=== PATIENT | male | born 1955 | race Caucasian/White ===

== ENCOUNTER 2016-10-14 16:21 | Inpatient (IN) ==
--- NOTE | 2016-10-14 17:09 | Emergency Department Report ---
Chest Pain HPI - General Chief Complaint: Chest Pain Stated Complaint: Chest & arm pain Time Seen by Provider: 10/14/16 16:56 - History of Present Illness HPI narrative: 60-year-old gentleman presents with chest pain. Onset has been intermittent over the last month, exacerbated by activity. He finds that if he becomes active has to sit and rest for couple of minutes and then the chest pain would resolve. He has not been to see his primary doc since this started. He was at work today sitting at his desk when he had sudden onset of chest pain which is more intense. He went back home, took a shower and tried to relax, but the discomfort continued. It seemed to settle down into his stomach. Initially having radiated to both arms. He spoke with his about it and she insisted he come to the emergency department. At this time he has no chest pain, does feel slightly short of breath and still has some nausea. - Related Data Allergies Allergy/AdvReac Type Severity Reaction Status Date / Time aspirin Allergy Intermediate Swelling Verified 10/14/16 16:59 ibuprofen Allergy Verified 10/14/16 16:59 Review of Systems All systems: reviewed and negative except as stated PFSH Hypertension, diabetes mellitus Physical Exam - Limitations Limitations: no limitations - General General appearance: alert, in no apparent distress - Normal Exams: Head:: Normocephalic without trauma Chest/Respirations:: Clear all adam, with good airflow, and symmetry bilaterally Cardiovascular:: Regular rate and rhythm, without murmur or gallop, Pulses 2+ all extremities, capillary refill, <2 seconds all extremities Abdomen:: Bowel sounds positive, soft, non-tender, non-distended, no hepatosplenomegaly, masses or bruits noted Neurological:: Patient is alert, and oriented, cranial nerves, motor/sensory/ cerebellar, exams w/o gross deficits, to observation Psychiatric:: Patient exhibits, appropriate attention, emotion and affect Chest Pain - [facility] Narrative Medical decision making narrative: EKG shows ST depressions in multiple leads. IV was started, cardiology was contacted. Dr. Sanchez was present in the ED within approximately 5 minutes of our initial evaluation of the patient. IV was started, and patient was taken directly back to [employer] [facility] before labs were returned and meds were given. [employer] staff will assume care of the patient and are going to follow labs and medication. Patient's blood pressure was 189/124, pulse 96, SaO2 97% on room air. He does have a history of high blood pressure and typically rises dramatically when he is evaluated in an office. - Differential Diagnosis Likely: unstable angina pectoris Disposition Clinical Impression: Unstable angina pectoris Disposition: 02 To [facility] Condition: Stable Time of Disposition: 17:10 - Seen By: physician
[2016-10-14 17:12] VITALS: RESP 18; TEMP 98.2
[2016-10-14] MEDS ORDERED: LIDOCAINE 1% (10mg/ml) 30ml SDV INJ ONE (17:12)
[2016-10-14] MEDS ORDERED: HEPARIN 1,000 UNITS/500 ML PREMIX (*CVL ONLY*) IV ONE (17:12)
[2016-10-14] MEDS ORDERED: FentaNYL 100 MCG/2 ML INJECTION ONE (17:18)
[2016-10-14] MEDS ORDERED: MIDAZOLAM 2mg/2ml INJECTION ONE (17:18)
[2016-10-14] MEDS ORDERED: NITROGLYCERIN 50MG INJECTION IV ONE (17:19)
[2016-10-14] MEDS ORDERED: Verapamil 5 MG/2 ML VIAL ONE (17:19)
[2016-10-14] MEDS ORDERED: MORPHINE SULFATE 2 MG SYRINGE IVP PRN (17:20)
[2016-10-14] MEDS ORDERED: LISINOPRIL 2.5 MG TABLET PO ONE (17:20)
[2016-10-14 17:21] VITALS: BP 183/126; PULSE 96; O2SAT 95
[2016-10-14] MEDS ORDERED: NS 1,000 ML ONE ×2 (17:21→17:22)
[2016-10-14] MEDS ORDERED: NITROGLYCERIN 0.4 MG SUBLINGUAL TABLET ONE (17:22)
[2016-10-14] MEDS ORDERED: NS 1,000 ML IV SCH (17:30)
[2016-10-14] MEDS ORDERED: NITROGLYCERIN 2% OINTMENT 1gm PACKET ONE (17:56)
[2016-10-14] MEDS ORDERED: Bisacodyl EC TAB 5 MG TABLET PO PRN ×2 (18:21)
[2016-10-14] MEDS ORDERED: METOCLOPRAMIDE 10mg/2ml INJECTION IVP PRN ×2 (18:21)
[2016-10-14] MEDS ORDERED: ATROPINE 1 MG/ML INJECTION IVP PRN ×2 (18:21)
[2016-10-14] MEDS ORDERED: PROMETHAZINE 25 MG INJECTION IVP PRN ×2 (18:21)
[2016-10-14] MEDS ORDERED: SALINE FLUSH 10ml SYRINGE IV ONE (18:21)
[2016-10-14] MEDS ORDERED: LORazepam 0.5 MG TABLET PO PRN ×2 (18:21)
[2016-10-14] MEDS ORDERED: NITROGLYCERIN 0.4 MG SUBLINGUAL TABLET SL PRN ×2 (18:21)
[2016-10-14] MEDS ORDERED: ONDANSETRON 4 MG/2 ML INJECTION IVP PRN ×2 (18:21)
[2016-10-14] MEDS ORDERED: ACETAMINOPHEN 325 MG TABLET PO PRN (18:21)
[2016-10-14] MEDS ORDERED: MAG-AL + SIM ORAL LIQUID 30ml PO PRN ×2 (18:21)
--- NOTE | 2016-10-14 18:30 | Discharge Instructions ---
Discharge Plan - Med Rec/Dispo Referrals/Follow Up: Darvin Aguirre MD [Primary Care Provider] - Hunter Casarez DO [Family Provider] - Prescriptions: No Action Allopurinol [Zyloprim] 1 tab PO DAILY Amlodipine [Norvasc] 10 mg PO DAILY Fluticasone Nasal [place] [Flonase] 2 spray MARILYN DAILY Atorvastatin [Lipitor] 40 mg PO HS Liraglutide [Victoza] 0.6 mg SQ DAILY Phenytoin Cap [Dilantin] 100 mg PO DAILY Lisinopril [Prinivil] 20 mg PO DAILY Atenolol [Tenormin] 50 mg PO BID HydroCHLOROthiazide [Hydrodiuril] 25 mg PO DAILY - Disposition 02 To [facility] Acute Care
[2016-10-14] MEDS ORDERED: CARVEDILOL 3.125 MG TABLET PO SCH (21:00)
[2016-10-14] MEDS ORDERED: ATENOLOL 50 MG TABLET PO SCH (21:00)
[2016-10-14] MEDS ORDERED: ATORVASTATIN 40 MG TABLET PO SCH ×2 (22:00)
[2016-10-14] MEDS ORDERED: HEPARIN DRIP 20,000 UNIT/500 ML BAG IV ONE (23:00)
[2016-10-15] MEDS ORDERED: PHENYTOIN 100 MG CAPSULE PO SCH (09:00)
[2016-10-15] MEDS ORDERED: ALLOPURINOL 300 MG TABLET PO SCH (09:00)
[2016-10-15] MEDS ORDERED: FLUTICASONE NASAL SPRAY 50mcg EA NOSTRIL SCH (09:00)
[2016-10-15] MEDS ORDERED: AMLODIPINE 10 MG TABLET PO SCH (09:00)
[2016-10-15] MEDS ORDERED: LIRAGLUTIDE INJECTABLE PEN SQ SCH (09:00)
[2016-10-15] MEDS ORDERED: LISINOPRIL 20 MG TABLET PO SCH (09:00)
--- NOTE | 2016-10-15 13:44 | Cardiac Catheterization Report ---
DATE OF PROCEDURE October 14, 2016 The patient is a 60-year-old gentleman who presented to emergency room with chest pressure and tightness and abnormal EKG suggestive of diffuse ischemia and was referred for further evaluation by cardiac catheterization and possible intervention. Informed consent was obtained after explaining the procedure and the potential risks to the patient who agreed to proceed with the procedure. PROCEDURE 1. Left heart catheterization. 2. Coronary angiography. 3. Left ventriculography. 4. Intra-aortic balloon pump insertion. TECHNIQUE He was prepped and draped in the usual sterile techniques. Conscious sedation was performed using Versed and fentanyl. 1% lidocaine was used for local anesthesia. Using modified Seldinger technique, arterial access was obtained into the right radial artery with placement of a 6-[place] arterial sheath. 6000 units of heparin, 300 mcg of nitroglycerin, and 2.5 mg of verapamil were given through the arterial sheath. LEFT VENTRICULOGRAPHY Left ventriculography in single-plane KRISH[place]URTHY shallow projection showed anteroapical akinesia with ejection fraction of about 30% with no mitral regurgitation or gradient across the aortic valve. LVEDP was elevated at about 30. CORONARY ANGIOGRAPHY Left main had proximal 80% and distal 80% stenosis. Left anterior descending artery had subtotal occlusion at the ostium just off of the left main. Proximal LAD also had about 80% stenosis. Left circumflex artery had stenosis of up to about 30% with no hemodynamically significant lesions. Right coronary artery was large and dominant with no significant lesions. After reviewing the images we decided to proceed with intra-aortic balloon pump insertion. 1% lidocaine was used for local anesthesia. Using modified Seldinger technique, arterial access was obtained into the right femoral artery with placement of an 8-[place] arterial sheath. Next, a 40 ml intra-aortic balloon pump was advanced over the wire into the descending thoracic aorta and was placed just distal to the origin of the left subclavian artery. Intra- aortic balloon pump was inflated without difficulty. The patient tolerated the procedure well with no complications. IMPRESSION 1. Severe coronary artery disease involving left main. 2. Wall motion abnormalities as described above with ejection fraction of about 30%. 3. Successful intra-aortic balloon pump insertion. Will transfer and consult surgery for possible coronary artery bypass graft. BRAVO
== END 2016-10-14 18:22 | disposition short-term general hospital (02) | DRG 271 ==
LOC: ED 16:21 → CCU 17:21
PROVIDERS: ADMIT Internal Medicine Cardiovascular Disease; ATTEND Internal Medicine Cardiovascular Disease

== ENCOUNTER 2016-10-24 20:33 | Observation (INO) ==
--- NOTE | 2016-10-24 21:32 | Emergency Department Report ---
General Adult HPI - General Chief complaint: Medical Emergency Stated complaint: numbness lt side of chest-uncomfortable Time Seen by Provider: 10/24/16 20:57 Source: patient, family Mode of arrival: ambulatory Limitations: no limitations - History of Present Illness HPI narrative: 60-year-old male presents to the emergency department with a chief complaint of feeling a numbness sensation across his anterior chest. Patient noted onset of symptoms approximately 1 hour prior to arrival to the emergency department today. He denies any true pain or discomfort. No radiation of symptoms. Symptoms have been persistent in nature since onset. Patient was at home when his symptoms began. Patient does not note any exacerbating or remitting factors. Patient has no other complaints or associated symptoms present. Patient did undergo CABG after having an ID on October 14, 2016. Patient did take 75 mg of Plavix by mouth 1 today prior to arrival to the emergency department. - Related Data Home Medications Medication Instructions Recorded Confirmed Atorvastatin [Lipitor] 40 mg PO HS 10/14/16 10/24/16 Fluticasone Nasal [place] [Flonase] 2 spray MARILYN DAILY 10/14/16 10/24/16 Phenytoin Cap [Dilantin] 100 mg PO DAILY 10/14/16 10/24/16 Acetaminophen 650 mg PO TID 10/24/16 10/24/16 Amlodipine Besylate [Norvasc] 5 mg PO DAILY 10/24/16 10/24/16 Carvedilol [Coreg] 12.5 mg PO BIDWM 10/24/16 10/24/16 Clopidogrel [Plavix] 75 mg PO DAILY 10/24/16 10/24/16 DiphenhydrAMINE [Benadryl] 25 mg PO Q4H PRN 10/24/16 10/24/16 Docusate Sodium [Colace] 100 mg PO BID 10/24/16 10/24/16 Famotidine [Pepcid] 20 mg PO BID 10/24/16 10/24/16 Furosemide [Lasix] 20 mg PO BID 10/24/16 10/24/16 Insulin Detemir [Levemir] 20 unit SQ HS 10/24/16 10/24/16 Lisinopril [Prinivil] 5 mg PO DAILY 10/24/16 10/24/16 Metformin [Glucophage] 1,000 mg PO BIDWM 10/24/16 10/24/16 Nitroglycerin 0.4 mg SL Q5M PRN 10/24/16 10/24/16 Potassium Chloride 20 meq PO DAILY 10/24/16 10/24/16 Allergies Allergy/AdvReac Type Severity Reaction Status Date / Time aspirin Allergy Intermediate Swelling Verified 10/24/16 21:15 ibuprofen Allergy Verified 10/24/16 21:15 liraglutide [From Victoza] AdvReac Nausea Verified 10/24/16 21:16 Review of Systems Constitutional: Denies: fever, chills Eyes: Denies: eye pain, eye discharge ENT: Denies: ear pain, throat pain Cardiovascular: Denies: chest pain, palpitations Respiratory: Denies: cough, dyspnea Gastrointestinal: Denies: abdominal pain, nausea, vomiting, diarrhea Genitourinary: Denies: urgency, dysuria, genital lesions Musculoskeletal: Denies: back pain Integumentary: Denies: erythema, rash Neurological: Denies: headache, weakness, numbness Psychiatric: Denies: anxiety, depression Endocrine: Denies: fatigue, heat or cold intolerance Hematological/Lymphatic: Denies: easy bleeding, easy bruising Allergic/Immunologic: Denies: facial swelling, urticaria PFSH Patient Stated Medical History Hypertension Yes Diabetes Mellitus Type 2 Yes ID, CAD Surgical History: CABG Family History: Reviewed and noncontributory. - Social History Smoking status: Never smoker Substance use type: does not use Alcohol intake frequency: does not drink Physical Exam - Limitations Limitations: no limitations - General General appearance: alert, in no apparent distress - Normal Exams: Head:: Normocephalic without trauma Eyes:: Pupils are PERRLA w/ EOMI, No scleral icterus, irritation, or foreign bodies noted ENMT:: No facial trauma, nasal exudates, pharyngeal erythema, or exudates are noted Dental: No fractured, loose, or missing teeth noted Neck:: Full range of motion, without adenopathy, JVD, bruits or thyromegaly Chest/Respirations:: Clear all adam, with good airflow, and symmetry bilaterally Cardiovascular:: Regular rate and rhythm, without murmur or gallop, Pulses 2+ all extremities, capillary refill, <2 seconds all extremities Abdomen:: Bowel sounds positive, soft, non-tender, non-distended, no hepatosplenomegaly, masses or bruits noted Lymphatic:: No lymphadenopathy, or lymphedema noted Musculoskeletal:: No tenderness, or deformity noted, good range of motion, all extremities Integumentary:: No rashes, hives, or bruising noted, hair and nails, without abnormality (Surgical incision is clean dry and intact without sign of infection.) Neurological:: Patient is alert, and oriented, cranial nerves, motor/sensory/ cerebellar, exams w/o gross deficits, to observation Psychiatric:: Patient exhibits, appropriate attention, emotion and affect Course Vital Signs Temperature 98.1 F 10/24/16 20:40 Pulse Rate 79 10/24/16 20:40 Respiratory Rate 17 10/24/16 20:40 Blood Pressure 146/89 H 10/24/16 20:40 Pulse Oximetry 95 10/24/16 20:40 Temperature 98.1 F 10/24/16 20:40 Pulse Rate 79 10/24/16 21:45 Respiratory Rate 23 10/24/16 21:45 Blood Pressure 132/93 H 10/24/16 21:45 Pulse Oximetry 96 10/24/16 21:45 Medical Decision Making - [facility] Narrative Medical decision making narrative: Labs / imaging were discussed in detail with the patient and family and questions are answered. Patient has taken 75 mg of Plavix by mouth 1 today prior to arrival to the emergency department. Patient has an aspirin ALLERGY. Patient declines offered analgesic pain medication in the emergency department stating he is not having true pain or discomfort. Patient is discussed with his special agent Dr. Sanchez who is in agreement with the current plan of management and recommends admitting the patient in observation status to his service for further evaluation and treatment. Patient is admitted to the hospital in improved condition. Patient and family are in agreement with the current plan of management. No further orders. - Differential Diagnosis ID, Chest wall pain, ACS, metabolic discomfort. - Lab Data Result diagrams: 10/24/16 21:13 10/24/16 21:13 Lab Results 10/24/16 10/24/16 Range/Units 21:13 21:13 WBC 11.6 H (4.5-11.0) T/MM3 RBC 4.15 L (4.50-5.90) M/MM3 Hgb 12.4 L (13.5-17.5) GM/DL Hct 36.1 L (41-53) % MCV 87.0 (80-100) UM3 MCH 29.9 (26-34) UUG MCHC 34.3 (31-37) GM/DL RDW Std Deviation 41.0 (36.9-50.2) FL Plt Count 394 D (130-400) T/MM3 MPV 9.4 (9.4-12.4) UM3 Immature Gran % (Auto) 1.0 H (0.0-0.5) % Neut % (Auto) 60.0 (33-66) % Lymph % (Auto) 26.1 (23-45) % [place] % (Auto) 9.2 H (0-9.0) % Eos % (Auto) 3.4 (0-4) % Baso % (Auto) 0.3 (0-2) % Neut # 6.9 (1.8-7.7) T/MM3 Lymph # 3.0 (1-4.8) T/MM3 [place] # 1.1 H (0-0.8) T/MM3 Eos # 0.4 (0-0.5) T/MM3 Baso # 0.0 (0-0.2) T/MM3 Abs Immat Gran (auto) 0.12 H (0.00-0.03) T/MM3 Turbidity < 20 (0-20) Sodium 141 (134-144) MEQ/L Potassium 3.4 L (3.6-5) MEQ/L Chloride 107 (98-107) MEQ/L Carbon Dioxide 23 (22-30) MEQ/L Anion Gap 11 (5-15) MEQ/L BUN 13.0 (9-20) MG/DL Creatinine 0.8 (0.8-1.5) MG/DL GFR Calculation 99 BUN/Creatinine Ratio 16 (6-26) RATIO Glucose 147 H (75-110) MG/DL Calculated Osmolality 274 (261-280) MOSM/KG Calcium 9.0 (8.4-10.2) MG/DL Total Bilirubin 0.50 (0.20-1.30) MG/DL Icterus Index < 2 (0-7) AST 27 (17-59) U/L ALT 42 (21-72) U/L Alkaline Phosphatase 91 (38-126) U/L Troponin I 0.643 H (0-0.12) ng/ml Total Protein 6.2 L (6.3-8.2) G/DL Albumin 3.8 (3.5-5.0) G/DL Globulin 2.4 (2.4-3.6) G/DL Albumin/Globulin Ratio 1.6 (1.1-2.2) RATIO Specimen Hemolysis < 15 (0-25) - Radiology Data CXR - No acute processes. - EKG Data EKG #1 EKG results narrative: Sinus rhythm. 79 bpm. No STEMI. No reciprocal changes. No active chest pain. Reviewed with Dr. Sanchez of cardiology who is in agreement with the interpretation. Critical Care Time Critical Care Time: Yes Total Critical Care Time: 47 Attestation: 47 minutes of critical care time was assessed to the patient due to the positive troponin. Patient required complex medical decision-making, repeated assessment at the bedside, and had potential for decompensation. Patient was admitted to the hospital for further evaluation and treatment. Disposition Clinical Impression: chest pain Disposition: 02 To [facility] Condition: Stable Time of Disposition: 21:33 (Admit. Dr. Sanchez. ) - Seen By: physician
[2016-10-24] MEDS ORDERED: SALINE FLUSH 10ml SYRINGE IVF PRN (22:22)
[2016-10-24 22:48] VITALS: BMI 25.9
[2016-10-24 23:06] VITALS: TEMP 97.6
[2016-10-25] MEDS ORDERED: DiphenhydrAMINE 25 MG CAPSULE PO PRN (06:25)
[2016-10-25] MEDS ORDERED: NITROGLYCERIN 0.4 MG SUBLINGUAL TABLET SL PRN (06:25)
[2016-10-25 07:18] VITALS: BP 149/95; RESP 16; O2SAT 96
[2016-10-25] MEDS ORDERED: CARVEDILOL 12.5 MG TABLET PO SCH (08:00)
[2016-10-25] MEDS ORDERED: METFORMIN 1,000 MG TABLET PO SCH (08:00)
[2016-10-25] MEDS ORDERED: --POM--LISINOPRIL 5 MG TABLET PO SCH (09:00)
[2016-10-25] MEDS ORDERED: PHENYTOIN 100 MG PO SCH (09:00)
[2016-10-25] MEDS ORDERED: FAMOTIDINE 20 MG TABLET PO SCH (09:00)
[2016-10-25] MEDS ORDERED: ACETAMINOPHEN 325 MG TABLET PO SCH (09:00)
[2016-10-25] MEDS ORDERED: --POM--CLOPIDOGREL 75 MG TABLET PO SCH (09:00)
[2016-10-25] MEDS ORDERED: --POM--METFORMIN 500 MG TABLET PO SCH (09:00)
[2016-10-25] MEDS ORDERED: PHENYTOIN 100 MG CAPSULE PO SCH (09:00)
[2016-10-25] MEDS ORDERED: FLUTICASONE NASAL SPRAY 50mcg EA NOSTRIL SCH (09:00)
[2016-10-25] MEDS ORDERED: --POM--FAMOTIDINE 20 MG TABLET PO SCH (09:00)
[2016-10-25] MEDS ORDERED: FUROSEMIDE 20 MG TABLET PO SCH (09:00)
[2016-10-25] MEDS ORDERED: CLOPIDOGREL 75 MG TABLET PO SCH (09:00)
[2016-10-25] MEDS ORDERED: LISINOPRIL 5 MG TABLET PO SCH (09:00)
[2016-10-25] MEDS ORDERED: AMLODIPINE 5 MG TABLET PO SCH (09:00)
[2016-10-25] MEDS ORDERED: NITROGLYCERIN 0.4 MG SL PRN (09:00)
[2016-10-25] MEDS ORDERED: --POM--FUROSEMIDE 20 MG TABLET PO SCH (09:00)
[2016-10-25] MEDS ORDERED: DOCUSATE SODIUM 100 MG CAPSULE PO SCH (09:00)
[2016-10-25] MEDS ORDERED: --POM--AMLODIPINE 5 MG TABLET PO SCH (09:00)
--- NOTE | 2016-10-25 09:23 | XRay Report ---
EXAM: XR chest 1V COMPARISON: None available. HISTORY: Pain . Numbness on left side of chest. FINDINGS:Sternotomy wires are in place. EKG leads project over the chest. The heart is enlarged. The pulmonary vascularity appears unremarkable. Linear opacities are seen at the left lung base which may represent atelectasis or scarring. The lungs are otherwise clear. There is no evidence for pleural effusion. There is no evidence for a pneumothorax. No osseous abnormalities are identified. IMPRESSION: 1. Cardiac megaly. 2. Left basilar atelectatic changes or scarring. LOCATION OF DICTATION: [facility] .
[2016-10-25 09:25] VITALS: PULSE 85
--- NOTE | 2016-10-25 11:10 | Cardiology History & Physical ---
History of Present Illness Chief complaint: Chest wall numbness HPI: Abiel is a 60 year old male who is known to Dr. Sanchez with a history of CA, CAD with CABG X2 on 10/15/16, HTN, HLD, DM. He presented to the ED last evening with a chief complaint of feeling a numbness sensation across his anterior chest. He noted onset of symptoms approximately 1 hour prior to arrival. He denied any true pain or discomfort. No radiation of symptoms. Symptoms have been persistent in nature since onset. He did not note any exacerbating or remitting factors. He is examined in his room on the surgical unit. He describes numbness on both sides of chest from mid-clavicular line to mid-clavicular line at the 3-4 intercostal spaces. He denies pressure, tightness or pain. He denies dyspnea, recent illness, fever, chills, sore throat, productive cough, N/V/D, dysuria. Review of Systems - Constitutional Constitutional: Absent: chills, fever(s) - EENMT Eyes: Absent: change in vision Balance: Absent: vertigo Mouth/Throat: Absent: sore throat - Cardiovascular Cardiovascular: Present: other (chest wall numbness). Absent: chest pain, palpitations, syncope, dyspnea on exertion, orthopnea Vascular: Absent: pedal edema - Respiratory Respiratory: Absent: cough, dyspnea - Gastrointestinal Gastrointestinal: Absent: diarrhea, nausea, vomiting - Genitourinary Genitourinary: Absent: dysuria - Integumentary/Breasts Integumentary: Present: other (midline sternal incision, healing well). Absent : erythema, rash - Neurological Neurological: Absent: dizziness PFSH Patient Stated Medical History Hypertension Yes Diabetes Mellitus Type 2 Yes Gout Yes Nephrolithiasis Yes Surgical History: CABG x2: GUEVARA to the LAD, Vein graft to Circumflex. Left leg vein harvest. Tonsillectomy. Vasectomy Family History: Father- alive, age 81 with PPM Mother- in her 70s, had Lupus - Social History Smoking status: Never smoker Substance use type: does not use Alcohol intake frequency: does not drink Housing: house Household members: spouse Current occupational status: employed Current occupation: computer game programmer Current occupational exposures/hazards: No Does patient use chewing tobacco?: No Current residence: Apartment/Private Home Medications Home Medications Medication Instructions Recorded Confirmed Type Atorvastatin [Lipitor] 40 mg PO HS 10/14/16 10/24/16 History Fluticasone Nasal [place] [Flonase] 2 spray MARILYN DAILY 10/14/16 10/24/16 History Phenytoin Cap [Dilantin] 100 mg PO DAILY 10/14/16 10/24/16 History Acetaminophen 650 mg PO TID 10/24/16 10/24/16 History Amlodipine Besylate [Norvasc] 5 mg PO DAILY 10/24/16 10/24/16 History Carvedilol [Coreg] 12.5 mg PO BIDWM 10/24/16 10/24/16 History Clopidogrel [Plavix] 75 mg PO DAILY 10/24/16 10/24/16 History DiphenhydrAMINE [Benadryl] 25 mg PO Q4H PRN 10/24/16 10/24/16 History Docusate Sodium [Colace] 100 mg PO BID 10/24/16 10/24/16 History Famotidine [Pepcid] 20 mg PO BID 10/24/16 10/24/16 History Furosemide [Lasix] 20 mg PO BID 10/24/16 10/24/16 History Insulin Detemir [Levemir] 20 unit SQ HS 10/24/16 10/24/16 History Lisinopril [Prinivil] 5 mg PO DAILY 10/24/16 10/24/16 History Metformin [Glucophage] 1,000 mg PO BIDWM 10/24/16 10/24/16 History Nitroglycerin 0.4 mg SL Q5M PRN 10/24/16 10/24/16 History Potassium Chloride 20 meq PO DAILY 10/24/16 10/24/16 History Allergies Allergy/AdvReac Type Severity Reaction Status Date / Time aspirin Allergy Intermediate Swelling Verified 10/24/16 21:15 ibuprofen Allergy Verified 10/24/16 21:15 liraglutide [From Victoza] AdvReac Nausea Verified 10/24/16 21:16 Exam Vital signs: Temperature 97.6 F 10/25/16 07:00 Pulse Rate 85 10/25/16 08:00 Respiratory Rate 16 10/25/16 07:00 Blood Pressure 149/95 H 10/25/16 07:00 Pulse Oximetry 96 10/25/16 07:00 Oxygen Delivery Method Room Air - Constitutional no acute distress, thin, cooperative - Routine HEENT Exam Head: Present: normocephalic ENT: Present: mucous membranes moist - Routine Neck Exam Absent: JVD, carotid bruit - Routine Chest/Breast/Axilla Exam Chest wall: Present: tenderness - Routine Respiratory Exam Present: CTA bilaterally. Absent: dyspnea, decreased breath sounds, rales, crackles - Routine Cardiovascular Exam Present: RRR, no murmur. Absent: JVD - Routine Abdominal Exam Present: soft, normoactive bowel sounds - Routine Extremities Exam Present: no edema - Routine Skin Exam Present: intact, dry, warm - Detailed Skin Exam chest Comments: well healing surgical incision - Routine Neurological Exam Present: alert, oriented X3 - Routine Psychiatric Exam Present: normal affect, normal thought process Results 10/24/16 21:13 10/25/16 06:10 Cardiac Enzymes 10/25/16 10/25/16 Range/Units 00:58 06:10 Troponin I 0.587 H 0.461 H (0-0.12) ng/ml Comprehensive Metabolic Panel 10/25/16 Range/Units 06:10 Sodium 141 (134-144) MEQ/L Potassium 3.5 L (3.6-5) MEQ/L Chloride 106 (98-107) MEQ/L Carbon Dioxide 26 (22-30) MEQ/L BUN 12.0 (9-20) MG/DL Creatinine 0.8 (0.8-1.5) MG/DL Glucose 138 H (75-110) MG/DL Calcium 8.7 (8.4-10.2) MG/DL Intake and Output 10/24/16 10/25/16 10/25/16 22:59 06:59 14:59 Intake Total 100 / 100 Balance 100 / 100 Intake: Oral 100 / 100 Other: # Voids 1 # Bowel Movements 1 Weight 166 lb 0.129 oz 163 lb 9.328 oz Patient Weight 10/26/16 06:59 Weight 163 lb 9.328 oz Laboratory Results - last 48 hr 10/24/16 10/24/16 10/25/16 21:13 21:13 00:58 WBC 11.6 H RBC 4.15 L Hgb 12.4 L Hct 36.1 L MCV 87.0 MCH 29.9 MCHC 34.3 RDW Std Deviation 41.0 Plt Count 394 D MPV 9.4 Immature Gran % (Auto) 1.0 H Neut % (Auto) 60.0 Lymph % (Auto) 26.1 [place] % (Auto) 9.2 H Eos % (Auto) 3.4 Baso % (Auto) 0.3 Neut # 6.9 Lymph # 3.0 [place] # 1.1 H Eos # 0.4 Baso # 0.0 Abs Immat Gran (auto) 0.12 H Turbidity < 20 Sodium 141 Potassium 3.4 L Chloride 107 Carbon Dioxide 23 Anion Gap 11 BUN 13.0 Creatinine 0.8 GFR Calculation 99 BUN/Creatinine Ratio 16 Glucose 147 H Glucometer Calculated Osmolality 274 Calcium 9.0 Magnesium Total Bilirubin 0.50 Icterus Index < 2 AST 27 ALT 42 Alkaline Phosphatase 91 Troponin I 0.643 H 0.587 H Total Protein 6.2 L Albumin 3.8 Globulin 2.4 Albumin/Globulin Ratio 1.6 Specimen Hemolysis < 15 40 H 10/25/16 10/25/16 10/25/16 06:10 06:10 06:51 WBC RBC Hgb Hct MCV MCH MCHC RDW Std Deviation Plt Count MPV Immature Gran % (Auto) Neut % (Auto) Lymph % (Auto) [place] % (Auto) Eos % (Auto) Baso % (Auto) Neut # Lymph # [place] # Eos # Baso # Abs Immat Gran (auto) Turbidity < 20 Sodium 141 Potassium 3.5 L Chloride 106 Carbon Dioxide 26 Anion Gap 9 BUN 12.0 Creatinine 0.8 GFR Calculation 99 BUN/Creatinine Ratio 15 Glucose 138 H Glucometer 134 Calculated Osmolality 273 Calcium 8.7 Magnesium 2.2 Total Bilirubin Icterus Index < 2 AST ALT Alkaline Phosphatase Troponin I 0.461 H Total Protein Albumin Globulin Albumin/Globulin Ratio Specimen Hemolysis < 15 - Imaging and Cardiology EKG results: image reviewed EKG interpretations - Dysrhythmias Sinus rhythms and dysrhythmias: sinus rhythm - CA, pacemaker, normal Myocardial infarction: septal CA (acute or recent) Hospital Course This is a general summary of the patient's hospital course. For more details refer to the complete medical record. Time spent with patient: 25 - 35 minutes Assessment and Plan (1) Precordial chest pain Problem details: numbness on both sides of chest from mid-clavicular line to mid -clavicular line at the 3-4 intercostal spaces. He denies pressure, tightness or pain. Status: Acute Reports numbness on both sides of chest from mid-clavicular line to mid- clavicular line at the 3-4 intercostal spaces. He denies pressure, tightness or pain. Is 10 days S/P CABG. Symptoms are consistent with post-op recovery. Troponin remains elevated from CA and surgery, trending down. (2) Atherosclerotic heart disease of [place] coronary artery without angina pectoris Problem details: Continue antiplatelet, EDGAR, BB, CCB, Statin, Diuretic with potassium relacement Status: Chronic Continue Anti-platelet, EDGAR, BB, CCB, Statin, diuretic with potassium replacement (3) Essential (primary) hypertension Problem details: Continue EDGAR, BB, CCB, Diuretic with potassium relacement Status: Chronic Continue EDGAR, BB, CCB, Diuretic with potassium replacement (4) Mixed hyperlipidemia Problem details: Continue Statin Status: Chronic Continue Statin therapy (5) Type 2 diabetes mellitus without complications Problem details: Continue Levemir and Metformin, PCP manages Status: Chronic Continue home Levemir and Metformin. PCP manages - Attestation Attestation Narrative: 10/27/16 11:57 Recommendation After examining the patient I agree with the above assessment. I am involved in the formulation of the patient's plan of care. Sepsis Assessment - Evaluation Sepsis screening result: No Definite Risk
--- NOTE | 2016-10-25 12:00 | Discharge Summary ---
<Vane Lundy - Last Filed: 10/25/16 13:25> Discharge Information Date of admission: 10/24/16 22:35 Anticipated date of discharge: 10/25/16 Attending Physician: Price Sanchez MD Primary care physician: MD Hunter Ballard, DO - Discharge Diagnosis (1) Precordial chest pain Problem Details: numbness on both sides of chest from mid-clavicular line to mid -clavicular line at the 3-4 intercostal spaces. He denies pressure, tightness or pain. Status: Acute (2) Atherosclerotic heart disease of [place] coronary artery without angina pectoris Qualifiers: [place] vs. transplanted heart: [place] heart Qualified Code(s): I25.10 - Atherosclerotic heart disease of [place] coronary artery without angina pectoris Problem Details: Continue antiplatelet, EDGAR, BB, CCB, Statin, Diuretic with potassium relacement Status: Chronic (3) Essential (primary) hypertension Problem Details: Continue EDGAR, BB, CCB, Diuretic with potassium relacement Status: Chronic (4) Mixed hyperlipidemia Problem Details: Continue Statin Status: Chronic (5) Type 2 diabetes mellitus without complications Qualifiers: Diabetes mellitus finding fastener insulin use: unspecified alf insulin use status Qualified Code(s): E11.9 - Type 2 diabetes mellitus without complications Problem Details: Continue Levemir and Metformin, PCP manages Status: Chronic - Laboratory Labs: 10/25/16 06:10 Laboratory Results - last 24 hr 10/24/16 10/24/16 10/25/16 21:13 21:13 00:58 WBC 11.6 H RBC 4.15 L Hgb 12.4 L Hct 36.1 L MCV 87.0 MCH 29.9 MCHC 34.3 RDW Std Deviation 41.0 Plt Count 394 D MPV 9.4 Immature Gran % (Auto) 1.0 H Neut % (Auto) 60.0 Lymph % (Auto) 26.1 Dukes % (Auto) 9.2 H Eos % (Auto) 3.4 Baso % (Auto) 0.3 Neut # 6.9 Lymph # 3.0 Dukes # 1.1 H Eos # 0.4 Baso # 0.0 Abs Immat Gran (auto) 0.12 H Turbidity < 20 Sodium 141 Potassium 3.4 L Chloride 107 Carbon Dioxide 23 Anion Gap 11 BUN 13.0 Creatinine 0.8 GFR Calculation 99 BUN/Creatinine Ratio 16 Glucose 147 H Glucometer Calculated Osmolality 274 Calcium 9.0 Magnesium Total Bilirubin 0.50 Icterus Index < 2 AST 27 ALT 42 Alkaline Phosphatase 91 Troponin I 0.643 H 0.587 H Total Protein 6.2 L Albumin 3.8 Globulin 2.4 Albumin/Globulin Ratio 1.6 Specimen Hemolysis < 15 40 H 10/25/16 10/25/16 10/25/16 06:10 06:10 06:51 WBC RBC Hgb Hct MCV MCH MCHC RDW Std Deviation Plt Count MPV Immature Gran % (Auto) Neut % (Auto) Lymph % (Auto) Dukes % (Auto) Eos % (Auto) Baso % (Auto) Neut # Lymph # Dukes # Eos # Baso # Abs Immat Gran (auto) Turbidity < 20 Sodium 141 Potassium 3.5 L Chloride 106 Carbon Dioxide 26 Anion Gap 9 BUN 12.0 Creatinine 0.8 GFR Calculation 99 BUN/Creatinine Ratio 15 Glucose 138 H Glucometer 134 Calculated Osmolality 273 Calcium 8.7 Magnesium 2.2 Total Bilirubin Icterus Index < 2 AST ALT Alkaline Phosphatase Troponin I 0.461 H Total Protein Albumin Globulin Albumin/Globulin Ratio Specimen Hemolysis < 15 - Radiology Radiology: Date of Exam: 10/24/16 Ordering Provider: Jatinder Tate DO Type of Exam(s): XR chest 1V Reason for Exam(s): Pain EXAM: XR chest 1V COMPARISON: None available. HISTORY: Pain . Numbness on left side of chest. FINDINGS:Sternotomy wires are in place. EKG leads project over the chest. The heart is enlarged. The pulmonary vascularity appears unremarkable. Linear opacities are seen at the left lung base which may represent atelectasis or scarring. The lungs are otherwise clear. There is no evidence for pleural effusion. There is no evidence for a pneumothorax. No osseous abnormalities are identified. IMPRESSION: 1. Cardiac megaly. 2. Left basilar atelectatic changes or scarring. [place] [facility] [place] Illness HPI: Abiel is a 60 year old male who is known to Dr. Sanchez with a history of [place], CAD with CABG X2 on 10/15/16, HTN, HLD, DM. He presented to the ED last evening with a chief complaint of feeling a numbness sensation across his anterior chest. He noted onset of symptoms approximately 1 hour prior to arrival. He denied any true pain or discomfort. No radiation of symptoms. Symptoms have been persistent in nature since onset. He did not note any exacerbating or remitting factors. He is examined in his room on the surgical unit. He describes numbness on both sides of chest from mid-clavicular line to mid-clavicular line at the 3-4 intercostal spaces. He denies pressure, tightness or pain. He denies dyspnea, recent illness, fever, chills, sore throat, productive cough, N/V/D, dysuria. Hospital Course This is a general summary of the patient's hospital course. For more details refer to the complete medical record. Exam Vital signs: Temperature 97.6 F 10/25/16 07:00 Pulse Rate 85 10/25/16 08:00 Respiratory Rate 16 10/25/16 07:00 Blood Pressure 149/95 H 10/25/16 07:00 Pulse Oximetry 96 10/25/16 07:00 Oxygen Delivery Method Room Air - Constitutional no acute distress, thin, cooperative - Routine HEENT Exam Head: Present: normocephalic Nose: moist mucous membranes - Routine Neck Exam Absent: JVD, carotid bruit - Routine Chest/Breast/Axilla Exam Chest wall: Present: tenderness - Routine Respiratory Exam Absent: dyspnea, decreased breath sounds, CTA bilaterally, rales, crackles - Routine Cardiovascular Exam Present: no murmur. Absent: JVD - Routine Abdominal Exam Present: soft, normoactive bowel sounds - Routine Extremities Exam Present: no edema - Routine Skin Exam Present: intact, dry, warm - Routine Neurological Exam Present: alert, oriented X3 - Routine Psychiatric Exam Present: normal affect, normal thought process Results 10/24/16 21:13 10/25/16 06:10 Cardiac Enzymes 10/25/16 10/25/16 Range/Units 00:58 06:10 Troponin I 0.587 H 0.461 H (0-0.12) ng/ml Comprehensive Metabolic Panel 10/25/16 Range/Units 06:10 Sodium 141 (134-144) MEQ/L Potassium 3.5 L (3.6-5) MEQ/L Chloride 106 (98-107) MEQ/L Carbon Dioxide 26 (22-30) MEQ/L BUN 12.0 (9-20) MG/DL Creatinine 0.8 (0.8-1.5) MG/DL Glucose 138 H (75-110) MG/DL Calcium 8.7 (8.4-10.2) MG/DL Intake and Output 10/24/16 10/25/16 10/25/16 22:59 06:59 14:59 Intake Total 100 / 100 Balance 100 / 100 Intake: Oral 100 / 100 Other: # Voids 1 # Bowel Movements 1 Weight 166 lb 0.129 oz 163 lb 9.328 oz Patient Weight 10/26/16 06:59 Weight 163 lb 9.328 oz - Imaging and Cardiology EKG results: image reviewed - EKG Interpretation EKG: sinus rhythm (septal [place], recent) Discharge Plan - Med Rec/Dispo Referrals/Follow Up: Price Sanchez MD [Physician] - 11/03/16 8:30 am Prescriptions: Continue Fluticasone Nasal [place] [Flonase] 2 spray MARILYN DAILY Atorvastatin [Lipitor] 40 mg PO HS Phenytoin Cap [Dilantin] 100 mg PO DAILY Furosemide [Lasix] 20 mg PO BID Famotidine [Pepcid] 20 mg PO BID Docusate Sodium [Colace] 100 mg PO BID DiphenhydrAMINE [Benadryl] 25 mg PO Q4H PRN PRN Reason: Prn Orders Carvedilol [Coreg] 12.5 mg PO BIDWM Amlodipine Besylate [Norvasc] 5 mg PO DAILY Nitroglycerin 0.4 mg SL Q5M PRN PRN Reason: Chest Pain Metformin [Glucophage] 1,000 mg PO BIDWM Lisinopril [Prinivil] 5 mg PO DAILY Clopidogrel [Plavix] 75 mg PO DAILY Acetaminophen 650 mg PO TID Potassium Chloride 20 meq PO DAILY Insulin Detemir [Levemir] 20 unit SQ HS - Disposition 01 Discharged Home, Self-Care <Price Sanchez - Last Filed: 10/27/16 11:58> Discharge Information Date of admission: 10/24/16 22:35 Attending Physician: Price Sanchez MD Primary care physician: Darvin Aguirre MD [facility], DO - Discharge Diagnosis (1) Precordial chest pain Problem Details: numbness on both sides of chest from mid-clavicular line to mid -clavicular line at the 3-4 intercostal spaces. He denies pressure, tightness or pain. Status: Acute (2) Atherosclerotic heart disease of [place] coronary artery without angina pectoris Qualifiers: [place] vs. transplanted heart: [place] heart Qualified Code(s): I25.10 - Atherosclerotic heart disease of [place] coronary artery without angina pectoris Problem Details: Continue antiplatelet, EDGAR, BB, CCB, Statin, Diuretic with potassium relacement Status: Chronic (3) Essential (primary) hypertension Problem Details: Continue EDGAR, BB, CCB, Diuretic with potassium relacement Status: Chronic (4) Mixed hyperlipidemia Problem Details: Continue Statin Status: Chronic (5) Type 2 diabetes mellitus without complications Qualifiers: Diabetes mellitus alf insulin use: unspecified alf insulin use status Qualified Code(s): E11.9 - Type 2 diabetes mellitus without complications Problem Details: Continue Levemir and Metformin, PCP manages Status: Chronic - Laboratory Labs: 10/25/16 06:10 Hospital Course This is a general summary of the patient's hospital course. For more details refer to the complete medical record. Exam Vital signs: Temperature 97.6 F 10/25/16 07:00 Pulse Rate 85 10/25/16 08:00 Respiratory Rate 16 10/25/16 07:00 Blood Pressure 149/95 H 10/25/16 07:00 Pulse Oximetry 96 10/25/16 07:00 Oxygen Delivery Method Room Air Results 10/24/16 21:13 10/25/16 06:10 Discharge Plan - Med Rec/Dispo - Attestation Attestation Narrative: 10/27/16 11:58 Recommendation After examining the patient I agree with the above assessment. I am involved in the formulation of the patient's plan of care.
[2016-10-25] MEDS ORDERED: --POM--CARVEDILOL 12.5 MG TABLET PO SCH (17:30)
[2016-10-25] MEDS ORDERED: INSULIN DETEMIR 100unit/ml INJECTION SQ SCH (22:00)
[2016-10-25] MEDS ORDERED: --POM--ATORVASTATIN 40 MG TABLET PO SCH (22:00)
== END 2016-10-25 13:40 | disposition home or self-care (01) ==
LOC: SRG 20:33 → ED 20:33 → SRG 22:20
PROVIDERS: ADMIT Internal Medicine Cardiovascular Disease; ATTEND Internal Medicine Cardiovascular Disease